=== PATIENT | male | born 1985 | race African-American/Black ===

== ENCOUNTER → 2016-11-09 | Outpatient (CLI) | payer OTHER ==
--- NOTE | ~2016-11-09 | CR218 ---
[facility] A Service of [facility] & [facility] RADIOLOGY TEXT RESULTS PATIENT: TRACE VALERO LOCATION: [facility] : [birth year] UNIT #: [id number] AGE: [address]: Ernie Pleitez OD SEX: M ORDER DR: [id number] [facility] [address] [place], [place] [address] [id number] O MR#: [id number] Acc #: [id number] NAME: TRACE VLAERO : 1985 SEX: M STUDY DATE/TIME: 11/09/2016 14:02 UNIT: [facility] ROOM: STUDY DESCRIPTION: CR Sacroiliac Joint <3 Views Attending Physician: Ernie Pleitez O.D. Referring Physician: Ernie Pleitez O.D. Ordering Physician: Ernie Pleitez O.D. [facility] REPORT This report is preliminary unless electronic signature is present EXAMINATION Three views of bilateral sacroiliac joints. DATE 11/09/2016 HISTORY 31-year-old male with back pain for 3 years. COMPARISON None. FINDINGS Sacroiliac joints appear unremarkable without ankylosis or erosive change or osteoarthritic change. No diastasis. IMPRESSION Normal 3 views of the sacroiliac joints. Dictated by... Radha Rolon M.D. THIS IS AN ELECTRONICALLY VERIFIED REPORT Radha Rolon M.D. at 11/15/2016 8:37 AM MILAN/naun TD: 11/09/2016 23:59 JOB #: [id number] MEDICAL IMAGING REPORT Page 1 of 1 COPY
[2016-11-09 13:36] LABS: BASOPHIL% 0.7 % (0-2.5); EOSINOPHIL# 0.1 X10e3 (0-0.7); EOSINOPHIL% 2.2 % (0.0-7.0); LYMPHOCYTE# 1.9 X10e3 (1.0-3.5); LYMPHOCYTE% 35.5 % (17.0-45.0); MEAN CELL VOLUME 85.9 FL (83-96); MEAN CORPUSCULAR HEMOGLOBIN 29.2 PG (28-34); MEAN PLATELET VOLUME 8.6 FL (6.5-11.5); MONOCYTE# 0.3 X10e3 (0-1.0); MONOCYTE% 4.8 % (3.0-12.0); NEUTROPHIL# 3.1 X10e3 (1.5-7.1); NEUTROPHIL% 56.8 % (40-75); PLATELET COUNT 160 X10e3 (140-420); RED BLOOD COUNT 5.48 X10e (3.90-5.60); RED CELL DISTRIBUTION WIDTH 13.5 % (11.0-15.5); WHITE BLOOD COUNT 5.5 X10e3 (4.0-10.5)
[2016-11-09 13:37] LABS: DIFF IND NO
[2016-11-15 11:52] LABS: ANA SCREEN Negative (Negative)
== END | disposition home or self-care (01) ==
LOC: CLAB 12:29
PROVIDERS: Optometrist
DX: M54.9 Dorsalgia, unspecified (principal); H20.13 Chronic iridocyclitis, bilateral; G89.29 Other chronic pain
CPT/HCPCS: 72200; 82164; 85025; 85549; 85652; 86038; 86039; 86140; 86430; 86780; 86812